=== PATIENT | female | born 1970 | race African-American/Black ===

== ENCOUNTER 2018-09-29 07:35 | Emergency (ER) | payer SELFPAY ==
[~2018-09-29] VITALS: Ht 162.6 cm; Wt 88.5 kg
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
[2018-09-29 08:40] VITALS: BP 140/74
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
[2018-09-29] MEDS ORDERED: TRAM50TA PO (08:58)
== END 2018-09-29 09:08 | disposition home or self-care (01) ==
LOC: ER 07:35
DX: S70.02XA Contusion of left hip, initial encounter (principal); S80.12XA Contusion of left lower leg, initial encounter; W18.30XA Fall on same level, unspecified, initial encounter; Y93.89 Activity, other specified; Y92.513 Shop (commercial) as the place of occurrence of the external cause; Y99.8 Other external cause status
CPT/HCPCS: 73502; 73590; 99283

== ENCOUNTER 2021-03-21 14:42 | Emergency (ER) | payer OTHER ==
[~2021-03-21] VITALS: Ht 162.6 cm; Wt 100.0 kg
[~2021-03-21 14:42] MED LIST: TRAM50TA PO
[2021-03-21 14:58] VITALS: BP 153/85
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
[2021-03-21] MEDS ORDERED: IBUPROFEN 200 MG TABLET. PO ONE (15:15)
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
[2021-03-21] MEDS ORDERED: IBUP-1007 PO (16:40)
[2021-03-21] MEDS ORDERED: ORPH100T PO (16:40)
== END 2021-03-21 16:49 | disposition home or self-care (01) ==
LOC: ER 14:42
DX: R51.9 Headache, unspecified (principal); M54.2 Cervicalgia; M25.511 Pain in right shoulder; M79.601 Pain in right arm; M16.11 Unilateral primary osteoarthritis, right hip; R42 Dizziness and giddiness; V49.49XA Driver injured in collision with other motor vehicles in traffic accident, initial encounter; Y93.89 Activity, other specified; Y92.488 Other paved roadways as the place of occurrence of the external cause; Y99.8 Other external cause status
CPT/HCPCS: 70450; 72125; 73030; 73552; 73700; 99285-25